=== PATIENT | female | born 1970 | race Caucasian/White ===

== ENCOUNTER 2017-07-29 09:02 | Emergency (ER) | payer SELFPAY ==
[~2017-07-29] VITALS: Ht 152.4 cm; Wt 120.0 kg
[~2017-07-29 09:02] MED LIST: ALPR0.25 PO; ALPR0.254 PO; HYDR-882 PO; LEVE500T53 PO; ONDA8TAB9 PO
[2017-07-29] MEDS ORDERED: MELO15TA24 PO (10:25)
[2017-07-29] MEDS ORDERED: OMEP40CA6 PO (10:25)
[2017-07-29] MEDS ORDERED: PREN1TAB28 PO (10:26)
[2017-07-29] MEDS ORDERED: VITA1TAB71 PO (10:26)
[2017-07-29] MEDS ORDERED: TRAM-47 PO (10:27)
[2017-07-29] MEDS ORDERED: ALBU18HF INH (10:32)
[2017-07-29] MEDS ORDERED: METHOCARBAMOL 750 MG TABLET PO ONE (11:30)
[2017-07-29] MEDS ORDERED: KETOROLAC 30 MG/1 ML IM ONE (11:30)
[2017-07-29] MEDS ORDERED: KETOROLAC 30 MG/1 ML ONE (11:42)
[2017-07-29] MEDS ORDERED: METHOCARBAMOL 750 MG TABLET ONE (11:42)
[2017-07-29 13:36] VITALS: BP 153/75
== END 2017-07-29 13:37 | disposition home or self-care (01) ==
LOC: ED 13:31
DX: S16.1XXA Strain of muscle, fascia and tendon at neck level, initial encounter (principal); V43.52XA Car driver injured in collision with other type car in traffic accident, initial encounter; Y93.89 Activity, other specified; Y92.488 Other paved roadways as the place of occurrence of the external cause; Y99.8 Other external cause status
CPT/HCPCS: 70450; 72125; 96372; 99284; J1885

== ENCOUNTER → 2018-08-28 | Outpatient (CLI) | payer MEDICAID ==
[~2018-08-28] MED LIST changes: +ALBU18HF INH; +HYDR-3653 PO; -HYDR-882 PO; +MELO15TA24 PO; +OMEP40CA6 PO; +PREN1TAB28 PO; +TRAM-47 PO; +VITA1TAB71 PO
== END | disposition home or self-care (01) ==
LOC: RAD 10:36
PROVIDERS: ATTEND Psychiatry & Neurology Neurology
DX: R56.9 Unspecified convulsions (principal)
CPT/HCPCS: 70551

== ENCOUNTER 2018-09-07 08:00 | Outpatient (CLI) | payer MEDICAID | END 2018-09-07 23:59 | disposition home or self-care (01) | LOC: CARD 08:00 | PROVIDERS: ATTEND Psychiatry & Neurology Neurology | DX: R06.4 Hyperventilation (principal); R56.9 Unspecified convulsions | CPT/HCPCS: 95819 ==